=== PATIENT | male | born 1945 | race Caucasian/White ===

== ENCOUNTER 2024-07-28 08:10 | Emergency (ER) | payer MEDICARE, OTHER ==
[2024-07-28 08:26] LABS: BASOPHILS PERCENT AUTO 0.2 % (0.2-1.2); EOSINOPHILS ABSOLUTE AUTO 0.2 x10^3/uL (0.0-0.5); EOSINOPHILS PERCENT AUTO 1.8 % (0.0-4.0); HEMATOCRIT 41.8 % (40.0-52.0); HEMOGLOBIN 13.8 g/dL (14.0-18.0); IMMATURE GRAN ABSOLUTE AUTO 0.03 x10^3/uL (0.00-0.07); LYMPHOCYTES ABSOLUTE AUTO 2.8 x10^3/uL (1.0-4.8); LYMPHOCYTES PERCENT AUTO 32.2 % (25.0-50.0); MEAN CORPUSCULAR HEMOGLOBIN 32.3 pg (26.0-32.0); MEAN CORPUSCULAR VOLUME 97.9 fL (78.0-93.0); MONOCYTES PERCENT AUTO 11.7 % (2.0-11.0); NEUTROPHILS ABSOLUTE AUTO 4.6 x10^3/uL (1.8-7.7); NEUTROPHILS PERCENT AUTO 53.7 % (50.0-80.0); PLATELET COUNT,PLT 179 x10^3/uL (130-400); RED BLOOD CELL COUNT 4.27 x10^6/uL (4.5-6.0); WHITE BLOOD CELL COUNT,WBC 8.5 x10^3/uL (4.0-10.0)
[2024-07-28 08:39] LABS: ANION GAP 20.2 mmol/L (5-15); BLOOD UREA NITROGEN,BUN 18 mg/dL (7-18); CALCIUM 8.7 mg/dL (8.5-10.1); CARBON DIOXIDE,CO2 19 mmol/L (21-32); CHLORIDE,CL 109 mmol/L (98-107); CREATININE 1.5 mg/dL (0.70-1.30); ESTIMATED GFR 47 mL/min (>=60); GLUCOSE RANDOM 158 mg/dL (70-99); POTASSIUM,K 4.2 mmol/L (3.5-5.1); SODIUM,NA 144 mmol/L (136-145)
[2024-07-28 09:09] LABS: D-DIMER QUANTITATIVE 1.25 mg/LFEU (<=0.58); PROTHROMBIN TIME 10.4 SEC (8.9-11.5); PTT,PARTIAL THROMBOPLSTIN TIME 24.7 SEC (21.9-33.8)
== END 2024-07-28 08:18 | disposition expired ==
LOC: VM.ED 08:10
DX: I46.9 Cardiac arrest, cause unspecified (principal)
CPT/HCPCS: 80048; 84484; 85025; 85379; 85610; 85730; 92950; 99285-25